=== PATIENT | male | born 1985 | race Caucasian/White ===

== ENCOUNTER → 2021-04-06 | Outpatient (CLI) | payer OTHER ==
--- NOTE | 2021-04-06 20:39 | RAD ---
EXAMINATION: Ultrasound pelvis duplex Limited INDICATION: Left lower quadrant pain. TECHNIQUE: Limited real-time sonographic evaluation area of clinical concern in the right lower quadr ant. COMPARISON: None. FINDINGS/ IMPRESSION: Multiple loops of small bowel in the area of clinical concern (left lower quadrant abdomen). No discr ete masses, or loculated fluid collection identified. Consider CT abdomen or pelvis, as warranted. Electronically signed by: Jovita Wright MD (04/06/2021 8:36 PM) [facility]
== END ==
LOC: RAD 19:02
PROVIDERS: ATTEND Nurse Practitioner Family
DX: R10.32 Left lower quadrant pain (principal)
CPT/HCPCS: 76857